=== PATIENT | male | born 1970 ===

== ENCOUNTER 2022-05-31 05:53 | Emergency (ER) | payer OTHER, SELFPAY ==
--- NOTE | 2022-05-31 | ECG_ITS ---
Test Reason : OD Blood Pressure : / mmHG Vent. Rate : 102 BPM Atrial Rate : 102 BPM P-R Int : 146 ms QRS Dur : 088 ms QT Int : 346 ms P-R-T Axes : 062 047 030 degrees QTc Int : 450 ms Sinus tachycardia Nonspecific T wave abnormality Abnormal ECG When compared with ECG of 03-MAY-2018 20:06, Nonspecific T wave abnormality now evident in Inferior leads Nonspecific T wave abnormality now evident in Anterior leads Referred By: Generic ED Physician Electronically Signed By:ALFREDO WEATHERS MD
--- NOTE | ~2022-05-31 | XR_ITS ---
EXAMINATION: XR CHEST CLINICAL INFORMATION: Shortness of breath COMPARISON: None TECHNIQUE: Frontal view of the chest was obtained. FINDINGS: Cardiac silhouette is normal in size. The lungs are adequately aerated. Subtle patchy airspace opacities bilaterally. No lobar consolidation. No pleural effusion or pneumothorax. Mild degenerative changes of the spine. XR/XR chest 1V IMPRESSION: Subtle patchy airspace opacities bilaterally. Findings are nonspecific but may represent a mild viral infiltrate.
[2022-05-31 06:08] VITALS: BP 126/84; PULSE 110; PULSE 96; RESP 16; TEMP 36.9; O2SAT 89; O2SAT 98; BMI 27.1
--- NOTE | 2022-05-31 06:20 | PC.NURSE ---
Pt oxygen saturation noted to be 89_91% room air on arrival. RN applied nasal canula on 2 Liters oxygen saturation noted to be 95% much inproved. Dr. Burt aware.
[2022-05-31 06:36] LABS: MANUAL DIFF FLAG NO
[2022-05-31 06:37] LABS: Basophils Percent Auto 0.3 % (0-2); Eosinophils Absolute Auto 0.1 X10*3/uL (0.0-0.4); Eosinophils Percent Auto 1.3 % (0-4); Hematocrit 37.1 % (42.0-52.0); Hemoglobin 12.2 g/dl (14.0-18.0); Imm Gran Abs Auto 0.05 X10*3/uL (0.00-0.03); Imm Gran Pct Auto 0.6 % (0.0-0.4); Lymphocytes Absolute Auto 0.7 X10*3/uL (1.2-4.9); Lymphocytes Percent Auto 8.1 % (20-40); Mean Corpuscular HGB Conc 32.9 g/dl (31.0-36.0); Mean Corpuscular Volume 91.2 fL (80.0-98.0); Mean Platelet Volume 8.1 fL (9.4-12.4); Monocytes Absolute Auto 0.5 X10*3/uL (0.1-1.2); Monocytes Percent Auto 5.5 % (2-11); Neutrophils Absolute Auto 7.6 x10*3/uL (2.0-8.3); Neutrophils Percent Auto 84.2 % (45-73); Platelet Count 252 X10*3/uL (160-400); Red Blood Count 4.07 X10*6/uL (4.60-5.80); Red Cell Distribution Width 12.6 % (11.0-16.0)
[2022-05-31 06:52] LABS: Lactic Acid 1.2 mmol/L (0.5-2.0)
[2022-05-31 06:57] LABS: Alanine Aminotransferase 37 U/L (0-40); Albumin Level 3.7 g/dL (3.5-5.0); Alkaline Phosphatase 98 U/L (39-117); Anion Gap 15 (12-20); Aspartate Amino Transferase 80 U/L (5-37); Bilirubin Total 0.7 mg/dL (0.0-1.0); Blood Urea Nitrogen 18 mg/dL (9-16); Calcium 8.2 mg/dL (8.4-10.2); Carbon Dioxide 23 mmol/L (22-29); Chloride 105 mmol/L (96-108); Creatinine Clr Calc Pharmacy 74.6; Estimated Glomerular Filt Rate > 60; Glucose Random 122 mg/dL (60-115); Potassium 3.8 mmol/L (3.3-5.1); Sodium 139 mmol/L (135-145); Total Protein 6.4 g/dL (6.5-8.0)
[2022-05-31 07:07] VITALS: BP 102/66; PULSE 86; RESP 13; O2SAT 94
--- NOTE | 2022-05-31 07:13 | ED_ITS ---
HPI - Overdose General Chief Complaint: Overdose Stated Complaint: OD Time Seen by Provider: 05/31/22 06:41 Source: patient and EMS Mode of arrival: EMS Limitations: no limitations History of Present Illness HPI Narrative: 52-year-old male brought in by ambulance after was found by his brother unresponsive. Patient with known history of drug abuse been just discharged from detox program patient admitted to using oxycodone pills of [address] to get high, patient has no intention to hurt himself there is no SI or HI. Patient was given 4 mg of Narcan intranasally time to by his brother and transported to the hospital. Related Data Allergies Allergy/AdvReac Type Severity Reaction Status Date / Time morphine [MORPHINE] Allergy Intermediate PASSES Unverified 12/14/19 15:27 OUT, LOC Review of Systems Review of Systems: All other systems are reviewed and are negative Constitutional: Reports as per HPI and Reports no additional constitutional complaints Eyes: Reports as per HPI and Reports no additional eye complaints Reports system reviewed and no additional complaints, except as documented Cardiovascular: Reports as per HPI and Reports no additional cardiovascular complaints Respiratory: Reports as per HPI and Reports no additional respiratory complaints Gastrointestinal: Reports as per HPI and Reports no additional gastrointestinal complaints Genitourinary: Reports no additional female genitourinary complaints Musculoskeletal: Reports no additional musculoskeletal complaints Skin/Breast: Reports system reviewed and no additional complaints, except as docu Psychiatric: Reports no additional psychiatric complaints Endocrine: Reports no additional endocrine complaints Hematologic/Lymphatic: Reports no additional hematologic/lymphatic complaints Allergic/Immunologic: Reports no additional allergic/immunologic complaints Reports system reviewed and no additional complaints, except as documented and Reports Abnormal speech present [facility] Social History Social History Advance Directives: No Advance Directives Information Provided: No Physical Exam Vital Signs: Vital Signs: Last Vital Signs Temp 98.4 F 05/31/22 06:08 Pulse 87 05/31/22 07:18 Resp 13 05/31/22 07:18 BP 102/66 05/31/22 07:18 Pulse Ox 93 05/31/22 07:18 O2 Del Method 05/31/22 07:18 BMI result Body Mass Index 27.1 Vital signs have been reviewed as appeared to be correct. Blood pressure normal. Heart rate normal. Respiration rate normal. Temperature normal. Oxygen saturation normal. Appearance: Alert. Oriented X3. No acute distress. Head: Normal external exam. Normocephalic. Atraumatic. No [place] signs noted. No raccoon eyes noted Eyes: PERRLA. EOMI. Conjunctiva and sclera normal. Eyelids normal. ENT: TM's Normal. Pharynx normal. Uvula midline. Moist mucous membranes. No trismus noted. No drooling noted. No muffled voice noted. Neck: Normal inspection. Neck supple. FROM. No adenopathy. Thyroid Normal. No meningeal signs. No neck mass noted. CVS: Normal heart rate and rhythm. Heart sound normal. No murmurs noted. Pulses normal throughout. Respiratory: No respiratory distress. Painless inspiration. Breath sounds normal. No wheezes/rales/rhonchi noted. Chest nontender. No accessory muscle usage noted or decreased air movement noted. Abdomen: Soft and nontender. Bowel sounds normal in all 4 quadrants. No distention noted. No organomegaly noted. No visible injury noted. Back: No CVA tenderness. Full range of motion noted. Skin: Skin warm and dry. Normal skin color. Normal skin turgor. No rashes/lesions/lacerations noted. Extremities: No lower extremity edema. Extremities exhibit normal range of motion. Extremities nontender. Neuro: Oriented X 3. Cranial nerve exam: II-XII are grossly intact No motor deficit. No sensory deficit. Reflexes normal. Decline SI or HI or auditory hallucination. Course Course Course Narrative: 52-year-old male brought in after overdose to harm oxycodone no SI, no HI, no hallucination. Patient now is awake, alert able to protect his airway. O2 sat remained above 92% on room air, patient is not coughing and afebrile do not meet criteria for SIRS. Medical Decision Making Differential Diagnosis Differential Diagnoses: The differential diagnosis associated with the presentation includes (Narcotic overdose, respiratory depression, aspiration pneumonia, trauma.) Lab Data MDM Lab Attestation statement: I reviewed the patient's lab results. 05/31/22 06:29 05/31/22 06:29 Labs: Lab Results 05/31/22 05/31/22 05/31/22 Range/Units 06:29 06:29 06:29 WBC 9.0 (4.8-10.8) X10*3/uL RBC 4.07 L (4.60-5.80) X10*6/uL Hgb 12.2 L (14.0-18.0) g/dl Hct 37.1 L (42.0-52.0) % MCV 91.2 (80.0-98.0) fL MCH 30.0 (27.0-33.0) pg MCHC 32.9 (31.0-36.0) g/dl RDW 12.6 (11.0-16.0) % Plt Count 252 (160-400) X10*3/uL MPV 8.1 L (9.4-12.4) fL Immature Gran % (Auto) 0.6 H (0.0-0.4) % Neut % (Auto) 84.2 H (45-73) % Lymph % (Auto) 8.1 L (20-40) % [place] % (Auto) 5.5 (2-11) % Eos % (Auto) 1.3 (0-4) % Baso % (Auto) 0.3 (0-2) % Lymph # (Auto) 0.7 L (1.2-4.9) X10*3/uL [place] # (Auto) 0.5 (0.1-1.2) X10*3/uL Eos # (Auto) 0.1 (0.0-0.4) X10*3/uL Baso # (Auto) 0.0 (0.0-0.2) X10*3/uL Abs Immat Gran (auto) 0.05 H (0.00-0.03) X10*3/uL Absolute Neuts (auto) 7.6 (2.0-8.3) x10*3/uL Absolute Nucleated RBC 0.000 (0.0-0.012) X10*3/uL Nucleated RBC % (auto) 0.0 (0.0-0.2) /100WBC Sodium 139 (135-145) mmol/L Potassium 3.8 (3.3-5.1) mmol/L Chloride 105 (96-108) mmol/L Carbon Dioxide 23 (22-29) mmol/L Anion Gap 15 (12-20) BUN 18 H (9-16) mg/dL Creatinine 1.12 (0.5-1.4) mg/dL Estim Creat Clear Calc 74.6 Estimated GFR > 60 Random Glucose 122 H (60-115) mg/dL Lactic Acid 1.2 (0.5-2.0) mmol/L Calcium 8.2 L (8.4-10.2) mg/dL Total Bilirubin 0.7 (0.0-1.0) mg/dL AST 80 H (5-37) U/L ALT 37 (0-40) U/L Alkaline Phosphatase 98 (39-117) U/L Total Protein 6.4 L (6.5-8.0) g/dL Albumin 3.7 (3.5-5.0) g/dL Independent Interpretation I performed an independent interpretation of an: EKG (Sinus tachycardia at 102 beats per minutes, normal axis deviation, normal intervals, no ST-T changes.) and Plain X-Ray (Chest: Subtle patchy airspace opacities bilaterally which is nonspecific.) Radiology Impression Discussion of test interpretation with radiology: I have reviewed the radiologist's reading. Chronic Conditions Patient?s care impacted by: Other (Drug use disorder.) Discharge Plan Discharge Clinical Impression: Drug overdose Patient Disposition: Home, Self-Care Instructions: Adult Overdose (ED)
[2022-05-31 07:18] VITALS: BP 102/66; PULSE 87; RESP 13; O2SAT 93
--- NOTE | 2022-05-31 08:46 | MHC.EDTECH ---
Pt was incontinent of bm. Pt was assisted with kathy care, change of clothes and linen.
--- NOTE | 2022-05-31 08:57 | PC.NURSE ---
pt standing at bedside, cleaning himself up with wipes. security took belongings to [facility]
--- NOTE | 2022-05-31 09:35 | HO.SUDE ---
Met with pt in ED3 to discuss substance use. Pt somnolent, wakes briefly to touch and falls back to sleep. Pt reports having recently been in treatment and in recovery x 14 months in many different facilities including [facility]. Pt reports he was supposed to continue on to sober living however there was an issue with transportation. Pt reports this was the first time he has used substances since being in treatment, one 30 mg illicit oxycodone, [place]. Pt is not on methadone nor Suboxone and is not interested. Pt reports hx overdose, unable to state how many. Pt wishes to return home, declines recovery intervention/support at this time.
== END 2022-05-31 11:31 | disposition home or self-care (01) ==
PROVIDERS: Student in an Organized Health Care Education/Training Program; Emergency Provider Emergency Medicine; PCP Internal Medicine
DX: T40.2X1A Poisoning by other opioids, accidental (unintentional), initial encounter (principal); Y92.9 Unspecified place or not applicable; R00.0 Tachycardia, unspecified; Z71.51 Drug abuse counseling and surveillance of drug abuser; Z79.899 Other long term (current) drug therapy
CPT/HCPCS: 36415; 71045; 80053; 83605; 85025; 87040; 93005; 99285

== ENCOUNTER 2022-06-28 14:46 | Emergency (ER) | payer OTHER, SELFPAY ==
[2022-06-28 14:53] VITALS: BP 122/84; PULSE 88; RESP 16; TEMP 36.6; O2SAT 96; BMI 26.4
--- NOTE | 2022-06-28 14:58 | ED.OVERDOSE ---
HPI - Overdose General Chief Complaint: Overdose <Jama Kaur MD - Last Filed: 06/29/22 07:21> Stated Complaint: Overdose, vomiting per EMS <Jama Kaur MD - Last Filed: 06/29/22 07:21> Time Seen by Provider: 06/28/22 14:51 <Jama Kaur MD - Last Filed: 06/29/22 07:21> Source: patient <Jama Kaur MD - Last Filed: 06/29/22 07:21> Mode of arrival: EMS <Jama Kaur MD - Last Filed: 06/29/22 07:21> Limitations: no limitations <Jama Kaur MD - Last Filed: 06/29/22 07:21> History of Present Illness HPI Narrative: This is a 52 years old male brought in by ambulance after was found unresponsive in the car he was given Narcan and pre-hospital is now awake and alert he vomited x3 received Zofran also pre-hospital IV here denies HI and SI <Jama Kaur MD - Last Filed: 06/29/22 07:21> MD complaint: accidental overdose <Jama Kaur MD - Last Filed: 06/29/22 07:21> Onset (ago): hour(s) (1) <Jama Kaur MD - Last Filed: 06/29/22 07:21> Related Data Allergies/Adverse Reactions: Allergies Allergy/AdvReac Type Severity Reaction Status Date / Time morphine [MORPHINE] Allergy Intermediate PASSES Unverified 12/14/19 15:27 OUT, LOC <Jama Kaur MD - Last Filed: 06/29/22 07:21> Review of Systems Constitutional: Constitutional: Reports no additional constitutional complaints <Jama Kaur MD - Last Filed: 06/29/22 07:21> Eyes: Eyes: Reports no additional eye complaints <Jama Kaur MD - Last Filed: 06/29/22 07:21> Cardiovascular: Cardiovascular: Reports no additional cardiovascular complaints <Jama Kaur MD - Last Filed: 06/29/22 07:21> Musculoskeletal: Musculoskeletal: Reports no additional musculoskeletal complaints <Jama Kaur MD - Last Filed: 06/29/22 07:21> PMFSH Social History Social History: Social History Smoked in Last 30 Days: Yes Substance Use Type: Heroin Last Used Substance: Just Prior to Admission Advance Directives: No Advance Directives Information Provided: No <Jama Kaur MD - Last Filed: 06/29/22 07:21> Physical Exam Vital Signs: Vital Signs: Last Vital Signs Temp 98.6 F 06/28/22 23:54 Pulse 71 06/28/22 23:54 Resp 12 06/28/22 23:54 BP 112/71 06/28/22 23:54 Pulse Ox 95 06/28/22 23:54 O2 Del Method Room Air 06/28/22 23:54 BMI result Body Mass Index 26.4 <Jama Kaur MD - Last Filed: 06/29/22 07:21> Vital Signs: Last Vital Signs Temp 98.6 F 06/28/22 23:54 Pulse 71 06/28/22 23:54 Resp 12 06/28/22 23:54 BP 112/71 06/28/22 23:54 Pulse Ox 95 06/28/22 23:54 O2 Del Method Room Air 06/28/22 23:54 BMI result Body Mass Index 26.4 <Marie Leon MD - Last Filed: 06/28/22 23:51> Const: General: cooperative, no acute distress and well developed <Jama Kaur MD - Last Filed: 06/29/22 07:21> Nutritional Appearance: average body habitus <Jama Kaur MD - Last Filed: 06/29/22 07:21> HEENT: Head: Yes normal to inspection <Jama Kaur MD - Last Filed: 06/29/22 07:21> General nose exam: Normal external nose present <Jama Kaur MD - Last Filed: 06/29/22 07:21> Face and sinus: Yes normal facial exam <Jama Kaur MD - Last Filed: 06/29/22 07:21> Throat: Yes posterior oropharynx normal <Jama Kaur MD - Last Filed: 06/29/22 07:21> Neck: Neck: Yes normal visual inspection <Jama Kaur MD - Last Filed: 06/29/22 07:21> Chest: Chest palpation & inspection: normal inspection of the chest <Jama Kaur MD - Last Filed: 06/29/22 07:21> Resp: Effort & Inspection: normal respiratory effort <Jama Kaur MD - Last Filed: 06/29/22 07:21> Auscultation: clear to auscultation bilaterally <Jama Kaur MD - Last Filed: 06/29/22 07:21> Cardio: Rate: regular rate <Jama Kuar MD - Last Filed: 06/29/22 07:21> Rhythm: regular rhythm <Jama Kaur MD - Last Filed: 06/29/22 07:21> GI: Inspection: Yes normal to inspection <Jama Kaur MD - Last Filed: 06/29/22 07:21> Palpation (GI): Soft to palpation, not firm, nontender and no guarding <Jama Kaur MD - Last Filed: 06/29/22 07:21> : General: Yes no CVA tenderness <Jama Kaur MD - Last Filed: 06/29/22 07:21> Back/Spine/Pelvis: Back: no CVA tenderness <Jama Kaur MD - Last Filed: 06/29/22 07:21> Skin: General skin exam: no rashes or lesions noted, elasticity normal and turgor normal <Jama Kaur MD - Last Filed: 06/29/22 07:21> Rashes: no rashes <Jama Kaur MD - Last Filed: 06/29/22 07:21> Trauma: no lacerations or abrasions <Jama Kaur MD - Last Filed: 06/29/22 07:21> Extrem: General: Yes normal to inspection and Yes full ROM <Jama Kaur MD - Last Filed: 06/29/22 07:21> Course Reevaluation(s) Reevaluation #1: seen by care team refuses detox <Jama Kaur MD - Last Filed: 06/29/22 07:21> Time: 15:38 <Jama Kaur MD - Last Filed: 06/29/22 07:21> Reevaluation #2: Signed off to DR LEON will observe 1-2 h more <Jama Kaur MD - Last Filed: 06/29/22 07:21> Time: 16:11 <Jama Kaur MD - Last Filed: 06/29/22 07:21> Medical Decision Making Medical Decision Making [facility] Narrative: Presented after heroin overdose is now awake and alert we get care team to see pt <Jama Kaur MD - Last Filed: 06/29/22 07:21> Presented after heroin overdose is now awake and alert we get care team to see pt Patient now awake alert answering questions. Did not want any detox. Being discharged home with Narcan kit. In stable condition. <Marie Leon MD - Last Filed: 06/28/22 23:51> Lab Data [facility] Lab Attestation statement: I reviewed the patient's lab results. <Marie Leon MD - Last Filed: 06/28/22 23:51> Discharge Plan Discharge Clinical Impression: Heroin overdose, Drug overdose <Jama Kaur MD - Last Filed: 06/29/22 07:21> Patient Disposition: Home, Self-Care <Jama Kaur MD - Last Filed: 06/29/22 07:21> Instructions: Adult Overdose (ED), Opioid Use Disorder (ED) <Jama Kaur MD - Last Filed: 06/29/22 07:21> Referrals: Maribell Conroy MD [Primary Care Provider] - 1 day <Jama Kaur MD - Last Filed: 06/29/22 07:21> Interventions: ED Discharge Assessment Last Done: 06/29/22 00:01 <Jama Kaur MD - Last Filed: 06/29/22 07:21> Discharge Date/Time: 06/29/22 00:01 <Jama Kaur MD - Last Filed: 06/29/22 07:21>
--- OUTSIDE RECORDS SUMMARY | 2022-06-28 15:19 | XMS_ITS | Continuity of Care Document ---
Author Name Unknown Organization [facility] Address [address] [place] [address]- Care Team Providers Care New Home Sales Consultant Name Role Phone Omari Rodriguez MD Primary Care Physician Encounter [place] Date(s): 03/16/19 - 03/24/19 [facility] [address] [place] [address]- [facility] Discharge Disposition: A-D/C Home Attending Physician: Ivana Amin MD Admitting Physician: Ivana Amin MD Referring Physician: Not on Staff, Referring MD Allergies, Adverse Reactions, Alerts Substance Reaction Severity Status morphine 1 Active 1seizures with morphine Immunizations Given and Recorded Vaccine Date Status Refusal Reason tetanus/diphtheria/pertussis, acel(Tdap) 03/05/10 Given tetanus/diphtheria/pertussis, acel(Tdap) 12/06/08 Given Not Given Vaccine Date Status Refusal Reason tetanus/diphtheria/pertussis, acel(Tdap) 1 10/20/14 Not Given Patient Refuses 1Result Note: pt encouraged to get but declined it Medications cloNIDine 0.1 mg oral tablet 0.1 mg, 1, tablet, By Mouth, Every 4 hours, PRN, As needed for anxiety, # 50 tablet, Refills 1, Tot. Refills 1, Maintenance, Anxiety, 03/23/19 17:21:00 EST, Print Requisition Start Date: 03/23/19 Status: Ordered hydrOXYzine pamoate 50 mg oral capsule 1 capsule = 50 mg, By Mouth, Every 4 hours, PRN Anxiety, One as needed for anxiety, # 100 capsule, 1 Refills, Acute 04/23/19 17:25:00 EST, 03/23/19 17:21:00 EST, Capsule Start Date: 03/23/19 Stop Date: 04/23/19 Status: Ordered ibuprofen 600 mg oral tablet 600 mg, 1, tablet, By Mouth, Every 4 hours, PRN, not to exceed 3200 mg per 24 hours, # 100 tablet, Refills 1, Tot. Refills 1, Acute 04/23/19 17:24:00 EST, Pain , Moderate, 03/23/19 17:22:00 EST, Print Requisition Start Date: 03/23/19 Stop Date: 04/23/19 Status: Ordered Remeron 45 mg oral tablet 1 tablet = 45 mg, By Mouth, Daily at bedtime, # 30 tablet, 1 Refills, Maintenance, 03/23/19 17:23:00 EST, Tablet Start Date: 03/23/19 Status: Ordered SEROquel 400 mg oral tablet 1 tablet = 400 mg, By Mouth, Daily at bedtime, # 30 tablet, 1 Refills, Maintenance, 03/23/19 17:23:00 EST Start Date: 03/23/19 Stop Date: 05/22/19 Status: Ordered Results Radiology Reports * Exam Date Time Procedure Performing Provider Status 03/21/19 10:45 PM Facial Bones Comp Min 3 Views Michael Yip; Papi (Verified) Notes: (Facial Bones Comp Min 3 Views) Reason For Exam: Left facial pain. ?fracture of place to left orbit/mu-ism;Pain RESULT: Facial Bones Comp Min 3 Views Facial bones INDICATION/CLINICAL QUESTION: Reason: Pain; Left facial pain. ?fracture of place to left orbit mu-ism; COMPARISON: Most recent 06/08/2011 FINDINGS: No acute fracture. Surgical fixation hardware throughout the left maxillofacial region is stable. Minimal rightward deviation of the nasal septum. Visualized paranasal sinuses are clear. IMPRESSION: No acute findings. I have personally reviewed the images and I agree with this report. WSN: [id number] Dictated By: Moise Barron MD Dictated Date/Time: 03/21/19 11:10 p Reviewed By: Louis Abraham DO Signed By: Louis Abraham DO Signed Date/Time: 03/21/19 11:15 pm Transcribed By: CLEOPATRA Transcribed Date/Time: 03/21/19 11:06 pm Vital Signs Most recent to oldest [Reference Range]: 1 2 3 Height 172.72 cm (03/23/19 9:12 PM) 172.72 cm (03/23/19 9:10 AM) 172.72 cm (03/22/19 9:37 PM) Weight 74 kg (03/22/19 12:09 PM) 69.5 kg (03/16/19 9:54 PM) Oxygen Saturation [94-100 %] 99 % (03/23/19 9:12 PM) 100 % (03/22/19 9:37 PM) 100 % (03/21/19 5:15 PM) Pulse Rate [55-90 bpm] 88 bpm (03/23/19 9:12 PM) 113 bpm *H* (03/23/19 9:10 AM) 93 bpm *H* (03/22/19 9:37 PM) Body Mass Index [18.5-24.99] 23.3 (03/16/19 9:54 PM) Blood Pressure [90-138/55-84 mm Hg] 111/69mm Hg (03/23/19 9:12 PM) 124/81mm Hg (03/23/19 9:10 AM) 121/84mm Hg (03/22/19 9:37 PM) Respiratory Rate [16-30 br/min] 18 br/min (03/24/19 8:47 AM) 18 br/min (03/23/19 9:18 PM) 18 br/min (03/23/19 9:12 PM) Temperature [96.8-100.4 DegF] 98.1 DegF (03/23/19 9:12 PM) 97.5 DegF (03/23/19 9:10 AM) 97.4 DegF (03/22/19 9:37 PM) Mode of Delivery (Oxygen) Room air (03/22/19 9:37 PM) Room air (03/21/19 5:15 PM) Room air (03/20/19 5:40 PM) Blood pressure sites Arm, right (03/23/19 9:12 PM) Arm, right (03/22/19 9:37 PM) Arm, right (03/22/19 9:55 AM) Temperature Route Oral (03/23/19 9:12 PM) Oral (03/22/19 9:37 PM) Oral (03/21/19 5:15 PM) Dry Weight 69.5 kg (03/16/19 9:54 PM) Sensory deficits None (03/16/19 9:54 PM) Mobility assistance Independent (03/16/19 9:54 PM)
--- NOTE | 2022-06-28 15:29 | PC.NURSE ---
Pt states accidental OD smoked weed that had heroin in it
--- NOTE | 2022-06-28 15:30 | HO.SUDE ---
Met with pt in ED10 after accidental overdose. Pt laying in bed, eyes closed, wakes to voice. Pt has stopped vomiting and reports feeling fine. Denies withdrawal symptoms. Pt states I don't use dope like that. I was in the car and was going to smoke a blunt and they laced the weed. Pt reports recently being in [facility] tx x 14 months, discharged approx one month ago from [facility] in [place]. Prior to treatment, pt reports using crack cocaine, INH, as well as heroin, 6 bags daily, INH. Pt denies IV use. Pt is not interested in recovery resources, supports, or ATS at this time. Discussed harm reduction, fentanyl test strips, tolerance after period in recovery. Denies questions or concerns. ED provider aware.
--- NOTE | 2022-06-28 17:40 | PC.NURSE ---
Pt up eating ham sandwich, cheese and maryjo pauline.
--- NOTE | 2022-06-28 18:34 | PC.NURSE ---
Pt remains asleep in ER but abusable to voice
[2022-06-28 18:35] VITALS: BP 102/63; PULSE 71; RESP 17; O2SAT 91
[2022-06-28 19:19] VITALS: BP 100/60; PULSE 73; RESP 12; TEMP 36.9; O2SAT 94
--- NOTE | 2022-06-28 19:20 | PC.NURSE ---
Pt aox4 resting at the bedside. No apparent distress noted. VSS. Reports improved abd pain, 2/10. Pending Ct scan results. Pt aware of plan of care.
--- NOTE | 2022-06-28 19:50 | PC.NURSE ---
Pt aox3 resting/sleeping at the bedside. Arousable to verbal stimuli. Able to ambulate to urinal. Unable to provide urine sample at this time. VSS. No apparent distress noted. Will continue to monitor.
[2022-06-28 23:54] VITALS: BP 112/71; PULSE 71; RESP 12; TEMP 37; O2SAT 95
--- NOTE | 2022-06-29 | PC.NURSE ---
Pt aox3 resting at the bedside in no apparent distress. IV line removed with no complication. Pt tolerated well. Discharge instructions reviewed with pt. Pt verbalizes understanding.
== END 2022-06-29 00:01 | disposition home or self-care (01) ==
PROVIDERS: Emergency Provider Emergency Medicine; PCP Internal Medicine
DX: T40.1X1A Poisoning by heroin, accidental (unintentional), initial encounter (principal); Y92.9 Unspecified place or not applicable; Z71.51 Drug abuse counseling and surveillance of drug abuser
CPT/HCPCS: 99285

== ENCOUNTER 2022-11-08 04:00 | Emergency (ER) | payer OTHER, SELFPAY ==
[2022-11-08 04:12] VITALS: BP 133/78; BP 140/75; PULSE 66; PULSE 68; RESP 17; TEMP 36.9; O2SAT 100; O2SAT 96; BMI 21.3
--- NOTE | 2022-11-08 04:20 | PC.NURSE ---
this rn assumed care of pt @ 0412. security at bedside. belonging secured in decon. dr magallon at bedside
--- NOTE | 2022-11-08 05:12 | MHC.EDTECH ---
Patient arrived by ambulance ,pt was changed into hospital attire, placed on pipe foreman by RN and security at bedside and all belongings are in deacon room.
--- NOTE | 2022-11-08 05:35 | ED_ITS ---
HPI - General Adult General Chief complaint: ETOH/Substance Use Stated complaint: drugs/ alcohol use Time Seen by Provider: 11/08/22 05:35 Source: EMS Mode of arrival: EMS Limitations: altered mental status History of Present Illness HPI narrative: Patient comes to the emergency room via EMS. Patient was found by a bystander since guarding incite tree, patient admits to drug use and alcohol abuse. Patient calm, cooperative. Denies any head injury Related Data Allergies Allergy/AdvReac Type Severity Reaction Status Date / Time morphine [MORPHINE] Allergy Intermediate PASSES Unverified 12/14/19 15:27 OUT, LOC Review of Systems Review of Systems: Constitutional : No Weight loss, No Fever, No Chills, No Night Sweats, No Fatigue, No Malaise ENT/Mouth : No Hearing loss, No Ear Pain, No Nasal Congestion, No Sinus Pain, No Hoarseness, No sore throat, No Rhinorrhea, No Swallowing Difficulty Eyes: No Eye Pain, No Swelling, No Redness, No Foreign Body, No Discharge, No Vision Changes Cardiovascular : No Chest Pain, No SOB, No Dyspnea on Exertion, No Orthopnea, No Edema, No Palpitations Respiratory : No Cough, No Sputum, No Wheezing, No Smoke Exposure, No Dyspnea Gastrointestinal : No Nausea, No Vomiting, No Diarrhea, No Constipation, No abdominal Pain, No Hematochezia, No Melena Genitourinary : no irregular bleeding, No Dysuria, No Urinary Frequency, No Hematuria, No Urinary Incontinence, No Urgency, No Flank Pain, No Urinary Flow Changes, No Hesitancy Musculoskeletal : No joint pain, No Myalgias, No Joint Swelling Skin : No Skin Lesions, No rash Neuro : No Weakness, No Numbness, No Paresthesias, No Loss of Consciousness, No Dizziness, No Headache Psych : No Anxiety/Panic, No Depression, No SI/HI/AH/VH, admits to drug and alcohol abuse Heme/Lymph: No Bruising, No Bleeding,No Lymphadenopathy Endocrine : No Polyuria, No Polydipsia, No Temperature Intolerance [facility] Past Medical History Medical History (Updated 11/08/22 @ 05:38 by Nereida Barreto MD) Polysubstance abuse Social History Social History Substance Use Type: Heroin Advance Directives: No Advance Directives Information Provided: No Physical Exam ED Vital Signs: Vital Signs - 24 hr 11/08/22 04:12 Temperature 98.4 F Pulse Rate 68 Respiratory Rate 17 Blood Pressure 133/78 Pulse Oximetry 100 Oxygen Delivery Method Nasal Cannula BMI result Body Mass Index 21.3 Const Other: Appearance: Alert. Oriented X3. Somnolent, easily arousable Eyes: Pupils equal, round and reactive to light. ENT: Pharynx normal. Neck: Normal inspection. Neck supple. No lymph nodes noted. No crepitus CVS: Normal heart rate and rhythm. Pulses normal. Normal S1 and S2 Respiratory: No respiratory distress. Breath sounds normal. No Wheezing. No rales Abdomen: Soft and nontender. No rigidity. No distention. Skin: Skin warm and dry. Normal skin color. Normal skin turgor. Extremities: No lower extremity edema. No Lacerations. No Rash Neuro: Oriented X 3. No motor deficit. No sensory deficit. Moving all extremities. No slurred speech. CN 2 through 12 grossly intact Psych: calm, cooperative, normal affect Course Course Course Narrative: -initially, patient was saturating in the mid 90s on room air. After patient's lab for couple of hours, patient's oxygen saturation dropped to the low 80s, patient had to be given Narcan. Patient woke up immediately. Patient on nasal cannula, saturating 100% on 1 L, sleeping comfortably. Plan: Metabolized to freedom, offer sude consult and discharge Discharge Plan Discharge Clinical Impression: Polysubstance abuse Patient Disposition: Still a Patient
[2022-11-08 05:46] VITALS: BP 137/83; PULSE 92; RESP 16; O2SAT 99
[2022-11-08 08:00] VITALS: BP 112/78; PULSE 71; RESP 14; TEMP 36.6; O2SAT 97
--- NOTE | 2022-11-08 08:17 | PC.NURSE ---
vss, nsr on the cardiac rehabilitation specialist. CIWA = 4. will notify provider. pt cooperative while taking vitals but will not respond/answer questions due for tasks. resting/sleeping with the lights dimmed. call starr in place.
== END 2022-11-08 09:37 | disposition home or self-care (01) ==
PROVIDERS: Emergency Provider Emergency Medicine Emergency Medical Services
DX: F11.10 Opioid abuse, uncomplicated (principal); F10.10 Alcohol abuse, uncomplicated; Y90.9 Presence of alcohol in blood, level not specified
CPT/HCPCS: 99284

== ENCOUNTER 2023-10-07 13:17 | Emergency (ER) | payer OTHER, SELFPAY ==
[2023-10-07] VITALS (8 sets, daily range): BP systolic 128–150; BP diastolic 66–86; PULSE 80–97; RESP 16–20; TEMP 36.2–37.9; O2SAT 95–99; BMI 25.5
--- NOTE | ~2023-10-07 | CT_ITS ---
CT MAXILLOFACIAL WITHOUT CONTRAST HISTORY: Facial pain/swelling TECHNIQUE: CT images of the paranasal sinuses were acquired following intravenous administration of 85 mL of Omnipaque 350. This CT examination was performed using dose optimization techniques as appropriate, variously including the following: *Automated exposure control *Adjustment of mA and/or kV according to patient size (this includes techniques or standardized protocols for targeted exams where dose is matched to indication/reason for exam; i.e. extremities or head) *Use of iterative reconstruction technique DLP: 376.62 mGy-cm COMPARISON: None available FINDINGS: Numerous scattered dental caries diffusely involving the maxillary and mandibular dentition with scattered periapical/periodontal disease. Associated dehiscence overlying the buccal cortices of the carious parasymphyseal maxillary dentition. There is an amorphous peripherally enhancing fluid collection within the left premaxillary soft tissues involving the anterior aspect of the columella and protruding into the left nasal vestibule compatible with a presumably odontogenic abscess, measuring approximately 2.9 x 1.6 cm. Significant enhancing induration of the surrounding premaxillary and paranasal soft tissues, skin thickening, and subcutaneous reticulation in the left greater than right facial soft tissues extending into the infrahyoid neck compatible with cellulitis. There is partial stranding within the left buccal fat pad. The exact source of the odontogenic infection is difficult to elucidate given diffusely poor dentition, however there is asymmetric inflammatory change of the left sided gingivobuccal and facial soft tissues and more extensively eroded left maxillary molars with significant periapical/periodontal disease and erosion along the lingual and buccal cortices that may reflect the infectious source. Asymmetric thickening/myositis of the left platysma muscle. There is no floor of mouth involvement. Increased number of reactive hyperenhancing mildly prominent submandibular, submental, and mildly prominent jugulodigastric lymph nodes. There is ORIF for a chronic left ZMC fracture deformity across the left frontozygomatic suture, orbital floors/rim contiguous with the anterior left maxillary wall. Mild global cerebral volume loss. 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 Calcific plaque along the carotid siphons without stenosis. The mastoid air cells are well aerated. Moderate patchy opacification of the nasal cavity, including opacification of the left greater than right olfactory recesses and otherwise trace patchy paranasal sinus mucosal disease. Leftward nasal septal deviation with bony spur impinging on the left inferior nasal turbinate. The orbits are normal. There is normal enhancement of the major vessels in the neck. Mild cervical spondylosis. CT/CT facial bones w IV con IMPRESSION: Numerous scattered dental caries diffusely involving the maxillary and mandibular dentition with 2.9 x 1.6 cm presumably odontogenic abscess within the left premaxillary soft tissues involving the anterior aspect of the columella and protruding into the left nasal vestibule and cellulitis within the left greater than right facial soft tissues and neck. The exact source of the odontogenic infection is difficult to elucidate given diffusely poor dentition, however there is asymmetric inflammatory change of the left sided gingivobuccal and facial soft tissues and more extensively eroded left maxillary molars with significant periapical/periodontal disease and erosion along the lingual and buccal cortices that may reflect the infectious source. Multiple reactive cervical chain lymph nodes.
--- NOTE | 2023-10-07 14:01 | ED.SKABFB ---
HPI - Skin/Abscess/Foreign Bdy General Chief complaint: Skin/Abscess/Foreign Body Stated complaint: facial abscess Time Seen by Provider: 10/07/23 16:56 Source: patient Mode of arrival: ambulatory Limitations: other (poor historian) History of Present Illness ED Provider: Timmy ELISE HPI narrative: This is a 53 year old male hx of substance use disorder ( denies IVDA but states he smokes various drugs) presenting with erythematous and edematous rash on left cheek and upper lip w/ swelling x 3 days, concerned for possible abscess. He initially noticed a zit on the upper lip and tried to pop it, and since it has become more erythemtous, edematous, and painful. He denies other trauma to the area or intranasal drug use. Denies fevers, chills, myalgias, abdominal pain, nausea, vomiting, abd pain, cp, sob Related Data Previous Rx's ?Medication ?Instructions ?Recorded clindamycin HCl 300 mg capsule 600 mg (2 x 300 mg) PO TID #60 caps 10/07/23 Allergies Allergy/AdvReac Type Severity Reaction Status Date / Time morphine [MORPHINE] Allergy Intermediate PASSES Unverified 10/07/23 14:00 OUT, LOC Review of Systems Review of Systems: Yes all other systems are reviewed and are negative PMFSH Past Medical History Attestation statement: The following information was validated with the patient. Source: old records reviewed and nursing notes reviewed Medical History (Updated 10/07/23 @ 17:26 by RACHEL Osullivan) Polysubstance abuse Social History Social History Substance Use Type: Heroin Advance Directives: No Advance Directives Information Provided: No Do you have a plan to hurt others: No Plan Physical Exam Vital Signs: Vital Signs: Last Vital Signs Temp 99.6 F 10/07/23 21:46 Pulse 80 10/07/23 21:46 Resp 18 10/07/23 21:46 BP 137/73 10/07/23 21:46 Pulse Ox 98 10/07/23 21:46 O2 Del Method Room Air 10/07/23 21:46 BMI result Body Mass Index 25.5 vss Appearance: Alert.? Oriented X3.? No acute distress.? Head: Normocephalic, atraumatic, no step-offs or deformities. Erythema and swelling noted to left cheek, mildly tender to palpation. Eyes: Pupils equal, round and reactive to light.? ENT: Pharynx normal.? Neck: Normal inspection.? Neck supple.? CVS: Normal heart rate and rhythm.? Pulses normal.? Respiratory: No respiratory distress.? Breath sounds normal.?? Skin: Skin warm and dry.? Normal skin color.? Normal skin turgor. Multiple crusted papules in left nare and upper lip, extremely tender to palpation, erythemaous, edematous, indurated. Neuro: Oriented X 3.? No motor deficit.? No sensory deficit. CN 2-12 intact Course Course Course Narrative: This is a Rapid Medical Examination (RME) performed by Ravin Baeza PA-C in triage. Full HPI, ROS, assessment and treatment plan per primary provider in the Main ED. 53 yo male with history of arthritis, history of polysubstance abuse (smokes crack, heroin and cocaine) who presents to the ER for evaluation of worsening abscess to his nose, upper lip and face that started 3 days ago. got acutely worse today after he attempted to drain it at home. swelling now involved the septum, upper lip and left side of the face. poor dentition on exam. no fever or tachycardia in triage. Plan: labs, imaging per primary provider Reevaluation(s) Reevaluation #1: CBC with leukocytosis and neutrophil predominance. Chemistry with no acute electrolyte abnormalities needing intervention. I did order Zosyn and vanco. CT facial bones with contrast pending, LESLIE pending, blood cultures lactic acid pending. I will also order IV fluids. Time: 17:25 Reevaluation #2: Patient's vital signs are within normal limits, there is no evidence of sepsis despite the infection. He is received vancomycin and Zosyn. CT scan shows facial abscess that is likely odontogenic in nature. When discussing with the patient he reports that he does not feel it arrives from his dentition. He states that there was a small pimple that ?I was playing with and then it got bigger. ? We will treat with clindamycin as this will cover skin and odontogenic source. See procedure note. He was given return precautions Time: 22:48 Medications Administered Discontinued Medications Generic Name Dose Route Start Last Admin Trade Name Freq PRN Reason Stop Dose Admin Hydromorphone HCl 1 mg 10/07/23 21:59 10/07/23 22:21 Hydromorphone Hcl 1 Mg/Ml Syringe IVPUSH 10/07/23 22:00 1 mg ONCE ONE Administration Protocol Piperacillin Sod/Tazobactam 50 mls @ 100 mls/hr 10/07/23 17:00 10/07/23 18:30 Sod 3.375 gm/ Sodium Chloride IV 10/07/23 17:29 Infused ONCE ONE Infusion Vancomycin HCl 2,000 mg in 500 mls @ 250 mls/hr 10/07/23 17:00 10/07/23 21:40 Vancomycin/Ns IV 10/07/23 18:59 Infused ONCE ONE Infusion Sodium Chloride 2,280 mls @ 2,280 mls/hr 10/07/23 17:25 10/07/23 21:10 Ns 30 ml/kg infuse over 1 hr (2280 ml) 10/07/23 18:24 Infused IV Infusion .Q1H STA Iohexol 85 ml 10/07/23 19:32 10/07/23 19:33 Iohexol 350 Mg/Ml 100 Ml Infus..Btl IV 10/07/23 19:33 85 ml ONCE ONE Administration Lidocaine/Epinephrine 10 ml 10/07/23 21:59 10/07/23 22:21 Lidocaine Hcl 1%/Epi 1:100,000 30 Ml Vial INFILTRATI 10/07/23 22:00 Not Given ONCE ONE Lidocaine/Epinephrine 10 ml 10/07/23 22:15 10/07/23 22:21 Lidocaine Hcl 1%/Epi 1:100,000 10 Ml Vial INFILTRATI 10/07/23 22:16 10 ml ONCE ONE Administration Ondansetron HCl 4 mg 10/07/23 21:59 10/07/23 22:21 Ondansetron Hcl 4 Mg/2 Ml Vial IVPUSH 10/07/23 22:00 4 mg ONCE ONE Administration Medical Decision Making Medical Decision Making MDM Narrative: 53 year old male presenting with facial swelling, edema, and pain, possible abscess. PE multiple crusted papules in left nare and upper lip, extremely tender to palpation, erythematous, edematous, indurated. Hx and PE concerning for facial abscess vs cellulitis vs folliculitis. Unlikely parotitis, allergic reaction, anaphylaxis, Santana's angina, angioedema, necrotizing infection Plan - labs, imaging. Differential Diagnosis Differential Diagnoses: The differential diagnosis associated with the presentation includes Hx and PE concerning for facial abscess vs cellulitis vs folliculitis. Unlikely parotitis, allergic reaction, anaphylaxis, Santana's angina, angioedema, , necrotizing infection Admission/Observation Consideration of admission/observation: Escalation of care including admission/observation considered Lab Data MDM Lab Attestation statement: I reviewed the patient's lab results. 10/07/23 14:13 10/07/23 14:13 Labs: Lab Results 10/07/23 10/07/23 10/07/23 Range/Units 14:13 17:39 18:04 WBC 15.0 H (4.8-10.8) X10*3/uL RBC 4.29 L (4.60-5.80) X10*6/uL Hgb 13.4 L (14.0-18.0) g/dl Hct 40.3 L (42.0-52.0) % MCV 93.9 (80.0-98.0) fL MCH 31.2 (27.0-33.0) pg MCHC 33.3 (31.0-36.0) g/dl RDW 11.9 (11.0-16.0) % Plt Count 302 (160-400) X10*3/uL MPV 8.4 L (9.4-12.4) fL Immature Gran % (Auto) 0.3 (0.0-0.4) % Neut % (Auto) 79.9 H (45-73) % Lymph % (Auto) 11.5 L (20-40) % [place] % (Auto) 7.6 (2-11) % Eos % (Auto) 0.4 (0-4) % Baso % (Auto) 0.3 (0-2) % Lymph # (Auto) 1.7 (1.2-4.9) X10*3/uL [place] # (Auto) 1.1 (0.1-1.2) X10*3/uL Eos # (Auto) 0.1 (0.0-0.4) X10*3/uL Baso # (Auto) 0.0 (0.0-0.2) X10*3/uL Abs Immat Gran (auto) 0.05 H (0.00-0.03) X10*3/uL Absolute Neuts (auto) 11.9 H (2.0-8.3) x10*3/uL Absolute Nucleated RBC 0.000 (0.0-0.012) X10*3/uL Nucleated RBC % (auto) 0.0 (0.0-0.2) /100WBC Sodium 135 (135-145) mmol/L Potassium 4.2 (3.3-5.1) mmol/L Chloride 100 (96-108) mmol/L Carbon Dioxide 29 (22-29) mmol/L Anion Gap 10 L (12-20) BUN 8 L (9-16) mg/dL Creatinine 0.86 (0.5-1.4) mg/dL Estim Creat Clear Calc 96.1 Estimated GFR > 60 Random Glucose 124 H (60-115) mg/dL Lactic Acid 1.2 (0.5-2.0) mmol/L Calcium 9.4 D (8.4-10.2) mg/dL Magnesium 2.3 (1.6-2.6) mg/dL Total Bilirubin 0.5 (0.0-1.0) mg/dL Direct Bilirubin 0.2 (0.0-0.5) mg/dL AST 14 (5-37) U/L ALT 12 (0-40) U/L Alkaline Phosphatase 79 (39-117) U/L Total Protein 7.7 (6.5-8.0) g/dL Albumin 3.9 (3.5-5.0) g/dL Urine Opiates Screen Not Detected (Not Detect) Ur Buprenorphine Scrn Not Detected (Not Detect) ng/mL Ur Oxycodone Screen Not Detected (Not Detect) ng/mL Urine Methadone Screen Not Detected (Not Detect) ng/mL Urine Fentanyl Screen POSITIVE H (Not Detect) Ur Barbiturates Screen Not Detected (Not Detect) Ur Phencyclidine Scrn Not Detected (Not Detect) Ur Amphetamines Screen Not Detected (Not Detect) U Benzodiazepines Scrn Not Detected (Not Detect) Urine Cocaine Screen POSITIVE H (Not Detect) U Marijuana (THC) Screen POSITIVE H (Not Detect) Independent Interpretation I performed an independent interpretation of an: CT Scan Radiology Impression Discussion of test interpretation with radiology: I have reviewed the radiologist's reading. External Record Review External record reviewed: Office record and Outpatient record Prescription Management I considered prescription management with: Antibiotic Chronic Conditions Patient?s care impacted by: Other (polysubstance abuse ) Social Determinants Patient?s care significantly limited by Social Determinants of Health including: Low income, Alcoholism and drug addiction in family, Problems related to employment and Other Social Determinant of Health Procedures Abscess I/D Site: face Side (if applicable): left (Nares) Sedation/analgesia: other (Dilaudid) Local Anesthetic: lidocaine 1% and with epi Amount of anesthesia used (mL): 1 Technique: needle aspiration Amount of fluid expressed (mL): 2 Sent for culture/gram staining?: No Irrigation: No Packing used?: none Complications: pain Critical Care Time Critical Care Time Critical Care Time: Yes Total Critical Care Time: 35 Attestation: I attest to this time spent taking care of the patient, obtaining history, physical, reviewing labs, imaging, speaking to my attending, specialist or hospitalist. Discharge Plan Discharge Clinical Impression: Cellulitis, Abscess of skin or subcutaneous tissue Patient Disposition: Home, Self-Care Instructions: Abscess (ED) Additional Instructions: Continue clindamycin 600 mg 3 times daily for 10 days. Apply warm compresses every 4 hours Return for new or worsening symptoms, especially if you develop fever that will not improve Prescriptions: New clindamycin HCl 300 mg capsule 600 mg PO TID Qty: 60 0RF Print Language: Bahamian
[2023-10-07 14:20] LABS: MANUAL DIFF FLAG NO
[2023-10-07 14:21] LABS: Basophils Percent Auto 0.3 % (0-2); Eosinophils Absolute Auto 0.1 X10*3/uL (0.0-0.4); Eosinophils Percent Auto 0.4 % (0-4); Hematocrit 40.3 % (42.0-52.0); Hemoglobin 13.4 g/dl (14.0-18.0); Imm Gran Abs Auto 0.05 X10*3/uL (0.00-0.03); Imm Gran Pct Auto 0.3 % (0.0-0.4); Lymphocytes Absolute Auto 1.7 X10*3/uL (1.2-4.9); Lymphocytes Percent Auto 11.5 % (20-40); Mean Corpuscular HGB Conc 33.3 g/dl (31.0-36.0); Mean Corpuscular Hemoglobin 31.2 pg (27.0-33.0); Mean Corpuscular Volume 93.9 fL (80.0-98.0); Mean Platelet Volume 8.4 fL (9.4-12.4); Monocytes Absolute Auto 1.1 X10*3/uL (0.1-1.2); Monocytes Percent Auto 7.6 % (2-11); Neutrophils Absolute Auto 11.9 x10*3/uL (2.0-8.3); Neutrophils Percent Auto 79.9 % (45-73); Platelet Count 302 X10*3/uL (160-400); Red Blood Count 4.29 X10*6/uL (4.60-5.80); Red Cell Distribution Width 11.9 % (11.0-16.0)
[2023-10-07 14:39] LABS: Alanine Aminotransferase 12 U/L (0-40); Albumin Level 3.9 g/dL (3.5-5.0); Alkaline Phosphatase 79 U/L (39-117); Anion Gap 10 (12-20); Aspartate Amino Transferase 14 U/L (5-37); Bilirubin Direct 0.2 mg/dL (0.0-0.5); Bilirubin Total 0.5 mg/dL (0.0-1.0); Blood Urea Nitrogen 8 mg/dL (9-16); Calcium 9.4 mg/dL (8.4-10.2); Carbon Dioxide 29 mmol/L (22-29); Chloride 100 mmol/L (96-108); Creatinine Clr Calc Pharmacy 96.1; Estimated Glomerular Filt Rate > 60; Glucose Random 124 mg/dL (60-115); Magnesium 2.3 mg/dL (1.6-2.6); Potassium 4.2 mmol/L (3.3-5.1); Sodium 135 mmol/L (135-145); Total Protein 7.7 g/dL (6.5-8.0)
[2023-10-07 17:54] LABS: Lactic Acid 1.2 mmol/L (0.5-2.0)
[2023-10-07] MEDS: 0.9 % Sodium Chloride 2,280 ML 2280 ML IV (18:00)
[2023-10-07] MEDS: Piperacillin Sodium/Tazobactam 3.375 GM in 0.9 % Sodium Chloride 50 ML IV (18:00)
--- NOTE | 2023-10-07 18:10 | PC.NURSE ---
pt had blood cultures drawn and abx hung by 1800, was unable to scan the blood cultures due to computer scanning issue, once the scanner was fixed it scanned them for 1803.
--- NOTE | 2023-10-07 18:20 | PC.NURSE ---
patient a&ox, iv inserted, bc/lactic drawn, ivf started per order, abx given per order, pt c/o -01/05 facial pain, will notify provider, call starr within reach, will continue to monitor
[2023-10-07 18:29] LABS: Amphetamine Screen Urine Not Detected (Not Detect); Barbiturates, Urine Not Detected (Not Detect); Benzodiazepines Screen Urine Not Detected (Not Detect); Buprenorphine Scr Not Detected (Not Detect); Cannabinoid Screen Urine POSITIVE (Not Detect); Cocaine Screen Urine POSITIVE (Not Detect); Fentanyl, urine POSITIVE (Not Detect); Methadone Screen, Urine Not Detected (Not Detect); Opiate Screen Urine Not Detected (Not Detect); Oxycodone Screen Urine Not Detected (Not Detect); Phencyclidine Screen Urine Not Detected (Not Detect)
--- NOTE | 2023-10-07 19:23 | PC.NURSE ---
pt to CT scan
[2023-10-07] MEDS: iohexoL 350 MG/ML 100 ML INFUS..BTL 85 ML IV (19:33)
[2023-10-07] MEDS: vancomycin/NS 2,000 MG/500 ML PLAST..BAG 250 MG IV (19:36)
--- NOTE | 2023-10-07 19:36 | PC.NURSE ---
Jermaine warmed enough to hang/IVF continue to run slowly.
[2023-10-07] MEDS: ondansetron HCL 4 MG/2 ML VIAL IVPUSH (22:21)
[2023-10-07] MEDS: Lidocaine HCl 1%/Epi 1:100,000 10 ML VIAL INFILTRATI (22:21)
[2023-10-07] MEDS: HYDROmorphone HCl 1 MG/ML SYRINGE IVPUSH (22:21)
[2023-10-08 02:00] VITALS: RESP 18
[2023-10-08 05:48] VITALS: BP 131/78; PULSE 87; RESP 16; TEMP 36.9; O2SAT 98
== END 2023-10-08 06:32 | disposition home or self-care (01) ==
PROVIDERS: Physician Assistant; Emergency Provider Emergency Medicine; PCP Internal Medicine
DX: L03.90 Cellulitis, unspecified (principal); J34.0 Abscess, furuncle and carbuncle of nose; R21 Rash and other nonspecific skin eruption; K13.0 Diseases of lips
CPT/HCPCS: 10060; 36415; 70487; 80048; 80076; 80307; 83605; 83735; 85025; 87040; 96361; 96365; 96375; 99284; 99285; J1170; J2405; J2543; J3370; Q9967

== ENCOUNTER 2024-02-03 10:04 | Emergency (ER) | payer OTHER, SELFPAY ==
[2024-02-03 10:26] VITALS: BP 105/61; BP 131/70; PULSE 62; PULSE 64; RESP 12; TEMP 36.2; O2SAT 94; O2SAT 95; BMI 22.5
--- NOTE | 2024-02-03 11:03 | ED.GENADULT ---
HPI - General Adult General Chief complaint: ETOH/Substance Use Stated complaint: ? SEPSIS / ? DRUG USE PER EMS Time Seen by Provider: 02/03/24 11:02 Source: patient and EMS Mode of arrival: EMS Limitations: no limitations History of Present Illness ED Provider: Clementina Pittman Pa-C HPI narrative: Patient is a 53 year old assigned male at with a history of substance abuse presenting to the emergency department today after heroin use. Patient states that he used 3 bags of heroin today and was found outside the court house being overly sleepy so EMS brought him here. Patient denies any dizziness, lightheadedness, abdominal pain, nausea, vomiting, fever, chills, blurry vision, double vision, loss of vision, chest pain, difficulty breathing, shortness of breath, back pain, night sweats, pain with urination, increased urinary frequency, increased urinary urgency, blood in his urine or stool, syncope or a near syncopal episode, recent trauma or falls, bowel incontinence, bladder incontinence, or any other complaints at this time. Relieving factors: none Exacerbating factors: none Associated symptoms: denies other symptoms Treatments prior to arrival: none Related Data Previous Rx's ?Medication ?Instructions ?Recorded clindamycin HCl 300 mg capsule 600 mg (2 x 300 mg) PO TID #60 caps 10/07/23 Allergies Allergy/AdvReac Type Severity Reaction Status Date / Time morphine [MORPHINE] Allergy Intermediate PASSES Verified 02/03/24 10:28 OUT, LOC Review of Systems Constitutional: Constitutional: Reports no additional constitutional complaints, Denies chills, Denies fever(s) and Denies night sweats Eyes: Eyes: Reports no additional eye complaints, Denies blurry vision, Denies change in vision, Denies diplopia, Denies eye discharge, Denies loss of vision and Denies eye pain ENT: Denies dizziness Cardiovascular: Cardiovascular: Reports no additional cardiovascular complaints, Denies chest pain, Denies lightheadedness, Denies Loss of Consciousness and Denies dyspnea Respiratory: Respiratory: Reports no additional respiratory complaints and Denies dyspnea Gastrointestinal: Gastrointestinal: Reports no additional gastrointestinal complaints, Denies abdominal pain, Denies melena, Denies hematochezia, Denies change in bowel habits and Denies change in stool character Genitourinary: Genitourinary: Reports no additional male genitourinary complaints, Denies hematuria, Denies oliguria, Denies difficulty urinating, Denies dysuria, Denies urinary frequency, Denies urinary hesitancy, Denies urinary incontinence and Denies urinary urgency Musculoskeletal: Musculoskeletal: Reports no additional musculoskeletal complaints, Denies numbness and Denies tingling Neurologic: Denies dizziness, Denies loss of vision, Denies numbness and Denies tingling Psychiatric: Psychiatric: Reports no additional psychiatric complaints Endocrine: Endocrine: Reports no additional endocrine complaints Hematologic/Lymphatic: Hematologic/Lymphatic: Reports no additional hematologic/lymphatic complaints Allergic/Immunologic: Allergic/Immunologic: Reports no additional allergic/immunologic complaints [facility] Past Medical History Attestation statement: The following information was validated with the patient. Source: old records reviewed and nursing notes reviewed Medical History Polysubstance abuse Social History Social History Unable to assess alcohol history related to: Refusing to respond Use of substances other than those prescribed or required for medical reasons: Yes Substance Use Type: Heroin Advance Directives: No Physical Exam ED Vital Signs: Vital Signs - 24 hr 02/03/24 10:26 02/03/24 14:09 Temperature 97.1 F Pulse Rate 64 64 Respiratory Rate 12 12 Blood Pressure 105/61 104/59 L Pulse Oximetry 94 92 Oxygen Delivery Method Room Air Room Air BMI result Body Mass Index 22.5 Const General: cooperative, no acute distress, alert and awake Nutritional Appearance: well nourished Orientation/consciousness: patient oriented x3 Limitations: no limitations [facility] Head: Yes normal to inspection and Yes atraumatic Ears: hearing grossly normal bilaterally and external ears normal General nose exam: Normal external nose present, no nasal discharge noted and no epistaxis Face and sinus: Yes normal facial exam, No abrasion and No laceration Mouth: Normal oral and palatal mucosa present, no drooling and no muffled voice Eyes General: appearance normal, both eyes and all related structures Periorbital: periorbital findings normal Eyelids: Yes eyelids normal Conjunctivae: conjunctivae normal Pupils: Equal, round and reactive pupils present EOM: EOMs intact bilaterally Neck Neck: Yes normal visual inspection, Yes full ROM and Yes no lymphadenopathy Chest Chest palpation & inspection: normal inspection of the chest Resp Effort & Inspection: normal respiratory effort and able to speak in complete sentences GI Inspection: Yes normal to inspection Neuro General: patient oriented x3 and moves all extremities Cranial nerves: Yes Equal, round and reactive pupils present Cognition (Neuro): normal cognition Extrem General: Yes normal to inspection, Yes full ROM and Yes capillary refill normal Psych Appearance: grossly normal Mental Status: mental status grossly normal Affect: normal affect Attitude: cooperative Thought process: Normal thought process present Thought content: Normal thought content present Insight: Good insight present (Psych) Medical Decision Making Medical Decision Making MDM Narrative: Patient is a 53 year old assigned male at with a history of opiate abuse presenting to the emergency department today after using and being found too somnolent. Patient's physical exam showed an easily arousable individual that is maintaining his airway well and when awake can answer all questions appropriately. I explained my physical exam findings to the patient. I answered all questions asked by the patient. Addiction team attempted to meet with the patient however, the patient would not stay awake long enough to participate in the screening. Patient will remain in the department until he is either awake / sober enough to participate in the addiction screening or he is awake / sober enough, requesting to leave, and he is safe to do so. Differential Diagnosis Differential Diagnoses: The differential diagnosis associated with the presentation includes Opiate use Opiate abuse Admission/Observation Consideration of admission/observation: Escalation of care including admission/observation considered Patient would have been admitted to the hospital had his clinical presentation warranted hospital admission. Independent Historian Clinical information obtained from an independent historian. History obtained from or confirmed by: EMS (EMS provided additional history and confirmed the history provided by the patient) Discharge Plan Discharge Clinical Impression: Opiate abuse, continuous Patient Disposition: Still a Patient Prescriptions: No Action clindamycin HCl 300 mg capsule 600 mg PO TID Qty: 60 0RF Print Language: Icelandic
--- NOTE | 2024-02-03 11:47 | PC.NURSE ---
Assumed care of this patient at 1100. Patient sleeping soundly on stretcher at this time. Breathing even, unlabored, on portable VS monitor. VSS.
--- NOTE | 2024-02-03 14:02 | MHC.RECOVRN ---
Attempted to meet with pt after request from ED provider. Pt too sedated to engage in conversation. Resources left at bedside. Provider aware.
[2024-02-03 14:09] VITALS: BP 104/59; PULSE 64; RESP 12; O2SAT 92
[2024-02-03 18:41] VITALS: BP 136/67; PULSE 72; RESP 17; TEMP 36.9; O2SAT 95
[2024-02-03 20:14] VITALS: PULSE 78; RESP 15; TEMP 36.8; O2SAT 95
[2024-02-03 22:20] VITALS: BP 138/63; PULSE 70; RESP 12; TEMP 36.7; O2SAT 97
--- NOTE | 2024-02-03 22:30 | MHC.EDTECH ---
pt visibly diaphoretic when in bed, RN had made aware, this tech checked POC 101, I[place], RN aware
[2024-02-03 22:32] LABS: Glucose, Whole Blood 101 mg/dL (60-115)
[2024-02-03 22:42] VITALS: PULSE 70
--- NOTE | 2024-02-03 22:42 | PC.NURSE ---
pt ambulated to bathroom with steady gait. appeared diaphoretic upon return to bed. vitals as documented. poc wnl. cows 1. ciwa not done as pt denies alcohol use. pt resting comfortably in stretcher at this time nsr on monitor sats wnl. arousable to name and oriented, quick to fall back asleep. pt denies si/hi. awaiting consult with addiction.
[2024-02-04 05:11] VITALS: BP 115/71; PULSE 60; RESP 16; O2SAT 98
--- NOTE | 2024-02-04 09:03 | MHC.RECOVRN ---
Met with pt in [facility], along with swim coach David, to follow up and provide support. Pt sitting in bed, awake, alert, easily engages in conversation. Pt reports yesterday he believed he was going to be going to senior care so used substances prior to going into the courthouse. Pt ultimately did not make it into court. Pt reports heroin/fentanyl use, 1 bag daily, IN/INH, x 5 years. Pt reports he began using opioids when his mother in 2019. Pt also reports cocaine use, 1 gram daily, IN/INH x 5 years. 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 Pt not currently using alcohol. Pt reports hx 4 overdoses. Denies hx MOUD. Hx of [facility] admissions, last admission last year. 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 Pt is interested in [facility], however, would like to discharge and get some things in order first. Pt is not interested in MOUD at this time. Discussed other recovery supports and options, pt would like a swim coach however does not have a working phone nor an address. Pt plans to go to [facility] in the near future. Denies questions or concerns for t/w. ED provider aware.
--- NOTE | 2024-02-04 10:19 | PHA.MEDREC ---
Addendum entered by Allison Recinos RPh 02/04/24 11:46: reviewed by [facility]. Original Note: Pharmacy Consult ? Medication Reconciliation Pharmacy has completed the medication reconciliation. Patient claims he is not taking anything right now and has not taken anything in months , he claims he was taking Clonidine, Gabapentin, Meclizine and Hydroxyzine.
[2024-02-04] MEDS: Naloxone HCl Nasal TAKE HOME 4 MG SPRAY 8 MG NOSTRILALT (11:53)
[2024-02-04 11:54] VITALS: BP 120/71; PULSE 60; RESP 18; TEMP 36.8; O2SAT 98
== END 2024-02-04 11:54 | disposition home or self-care (01) ==
PROVIDERS: Emergency Provider Emergency Medicine
DX: F11.10 Opioid abuse, uncomplicated (principal); Z71.51 Drug abuse counseling and surveillance of drug abuser
CPT/HCPCS: 82947; 99284

== ENCOUNTER 2024-05-31 21:34 | Emergency (ER) | payer OTHER, SELFPAY ==
[2024-05-31 21:37] VITALS: BP 127/67; PULSE 54; PULSE 73; RESP 15; TEMP 36.6; O2SAT 91; O2SAT 94; BMI 24.6
[2024-05-31 22:04] VITALS: PULSE 54
[2024-05-31 22:05] VITALS: BP 127/67; PULSE 54; RESP 15; TEMP 36.6; O2SAT 91
--- NOTE | 2024-05-31 23:56 | ED.GENADULT ---
HPI - General Adult General Chief complaint: ETOH/Substance Use Stated complaint: used crack and heroine Time Seen by Provider: 05/31/24 23:47 Source: patient and EMS Mode of arrival: EMS Limitations: no limitations History of Present Illness ED Provider: Dr. Nereida Barreto HPI narrative: patient comes to the emergency room via ambulance. Patient was found by a bystander on the streets [place] using crack cocaine. They called EMS and brought the patient to emergency room. Patient did not overdose, did not need any Narcan. Patient admits to smoking heroin and crack cocaine. Related Data Home Medications ?Medication ?Instructions ?Recorded ?Confirmed No Known Home Meds 02/04/24 02/04/24 Allergies Allergy/AdvReac Type Severity Reaction Status Date / Time morphine [MORPHINE] Allergy Intermediate PASSES Verified 05/31/24 21:42 OUT, LOC Review of Systems Review of Systems: Constitutional : No Weight loss, No Fever, No Chills, No Night Sweats, No Fatigue, No Malaise ENT/Mouth : No Hearing loss, No Ear Pain, No Nasal Congestion, No Sinus Pain, No Hoarseness, No sore throat, No Rhinorrhea, No Swallowing Difficulty Eyes: No Eye Pain, No Swelling, No Redness, No Foreign Body, No Discharge, No Vision Changes Cardiovascular : No Chest Pain, No SOB, No Dyspnea on Exertion, No Orthopnea, No Edema, No Palpitations Respiratory : No Cough, No Sputum, No Wheezing, No Smoke Exposure, No Dyspnea Gastrointestinal : No Nausea, No Vomiting, No Diarrhea, No Constipation, No abdominal Pain, No Hematochezia, No Melena Genitourinary : no irregular bleeding, No Dysuria, No Urinary Frequency, No Hematuria, No Urinary Incontinence, No Urgency, No Flank Pain, No Urinary Flow Changes, No Hesitancy Musculoskeletal : No joint pain, No Myalgias, No Joint Swelling Skin : No Skin Lesions, No rash Neuro : No Weakness, No Numbness, No Paresthesias, No Loss of Consciousness, No Dizziness, No Headache Psych : No Anxiety/Panic, No Depression, No SI/HI/AH/VH, admits to crack cocaine and heroin u Heme/Lymph: No Bruising, No Bleeding,No Lymphadenopathy Endocrine : No Polyuria, No Polydipsia, No Temperature Intolerance PMFSH Past Medical History Medical History Polysubstance abuse Social History Social History Unable to assess alcohol history related to: Refusing to respond Smoked in Last 30 Days: Yes Substance Use Type: Crack/Cocaine and Heroin Substance Use Frequency: Chronic Longstanding Advance Directives: No Advance Directives Information Provided: Yes Do you have a plan to hurt others: No Plan Physical Exam ED Vital Signs: Vital Signs - 24 hr 05/31/24 21:37 05/31/24 22:05 Temperature 97.8 F 97.8 F Pulse Rate 54 54 Respiratory Rate 15 15 Blood Pressure 127/67 127/67 Pulse Oximetry 91 L 91 L Oxygen Delivery Method Room Air Room Air BMI result Body Mass Index 24.6 Const Other: Appearance: Alert. Oriented X3. No acute distress. Eyes: Pupils equal, round and reactive to light. ENT: Pharynx normal. Neck: Normal inspection. Neck supple. No lymph nodes noted. No crepitus CVS: Normal heart rate and rhythm. Pulses normal. Normal S1 and S2 Respiratory: No respiratory distress. Breath sounds normal. No Wheezing. No rales Abdomen: Soft and nontender. No rigidity. No distention. Skin: Skin warm and dry. Normal skin color. Normal skin turgor. Extremities: No lower extremity edema. No Lacerations. No Rash Neuro: Oriented X 3. No motor deficit. No sensory deficit. Moving all extremities. No slurred speech. CN 2 through 12 grossly intact Psych: calm, cooperative, normal affect Medical Decision Making Medical Decision Making MDM Narrative: patient requesting information for detox from crack cocaine/heroin. Patient given information to follow-up with addiction medicine patient's vitals stable. Patient ambulatory, alert and oriented x3, no SI or HI Discharge Plan Discharge Clinical Impression: Polysubstance abuse Patient Disposition: Home, Self-Care Instructions: Polysubstance Abuse (ED) Additional Instructions: Opiate use disorder You were seen in our Emergency Department today for treatment of opiate use disorder. You may have been dosed with medication for opiate use disorder (MOUD) in the form of suboxone or methadone. You may experience feeling some withdrawal symptoms and this is normal. The? dose in the Emergency Department is a starting dose and meant to be titrated up once you follow up with a clinic. Please do not feel discouraged, it is a process. The nurse has reviewed with you where to follow up and what information to bring with you, to continue treatment. You also may have been given naloxone (narcan) to take home with you. This medication is used to potentially treat opiate overdose. If you decide you want to stop or cut down on how much you?re using, you can call or walk into our outpatient Addiction Treatment office: [facility] (M-F 9am-5p) [address] [place] [address], [address] [phone] You may have been provided with safer injection?items, please take time to take care of YOU and your health. Use new supplies whenever possible to lessen the chances of infections and other illnesses.? ?If you need more supplies, please go [facility],? [address] [place] [address] OR you can call or text to coordinate delivery of safer supplies. You were also provided a list of several treatment providers in the area.? If you experience any worsening symptoms you cannot control please return to the ED or call 911. Please follow up at your next appointment. Things to look out for are fevers, chest pain, shortness of breath, severe pain, dizziness, fainting or any other concerns. Prescriptions: No Action No Known Home Meds Print Language: Bhutanese
[2024-06-01 02:42] VITALS: BP 127/67; PULSE 54; RESP 15; TEMP 36.6; O2SAT 91
== END 2024-06-01 03:02 | disposition home or self-care (01) ==
PROVIDERS: Emergency Provider Emergency Medicine
DX: F19.10 Other psychoactive substance abuse, uncomplicated (principal)
CPT/HCPCS: 99284